=== PATIENT | male | born 1955 | race Caucasian/White ===

== ENCOUNTER 2021-04-23 10:23 | Emergency (ER) | payer BC, MEDICARE, OTHER ==
[~2021-04-23] VITALS: Ht 170.2 cm; Wt 135.0 kg
[2021-04-23 10:23] VITALS: BP 109/79
--- NOTE | 2021-04-23 10:45 | PHYS DOC ---
Past History Past Surgical History: No Surgical History Adult General Chief Complaint Chief Complaint: LACERATION/AVULSION HPI HPI Patient is a 65-year-old male not up-to-date on tetanus who presents for hand laceration. Reports he was performing yard work and had his hand up performing maintenance in his house when he encountered a hornets nest. He quickly tried to remove hand from the area when he cut the dorsal portion of his hyperthenar eminence. Patient reported bleeding initially that stopped with compression, t here was concerned about need for sutures and so patient came to the ER for evaluation Review of Systems Review of Systems Fourteen body systems of review of systems have been reviewed. See HPI for pertinent positives and negative responses, other [place] all other systems are negative, non-pertinent or non-contributory Physical Exam Physical Exam Constitutional: Well developed, well nourished, no acute distress, non-toxic appearance. HENT: Normocephalic, atraumatic, bilateral external ears normal, oropharynx moist, no oral exudates, nose normal. Eyes: PERRLA, EOMI, conjunctiva normal, no discharge. Neck: Normal range of motion, no tenderness, supple, no stridor. Cardiovascular: Heart rate regular, sinus rhythm, no murmurs rubs or gallops Lungs & Thorax: Bilateral breath sounds clear to auscultation Abdomen: Bowel sounds normal, soft, no tenderness, no masses, no pulsatile masses. Nonsurgical abdomen, no peritoneal signs Skin: Warm, dry, no erythema, no rash. 2.5 cm well approximated linear laceration to dorsal portion of hyperthenar eminence involving epidermis and dermis only Back: No tenderness, no CVA tenderness. Extremities: No tenderness, no cyanosis, no clubbing, ROM intact, no edema. Radial pulses 2+ bilaterally, cap refill less than 3 seconds in all distal digits Neurologic: Alert and oriented X 3, medial radial and ulnar nerves of bilateral upper extremities intact, normal motor & sensory function, no focal deficits noted. Psychologic: Affect normal, judgement normal, mood normal. Current Patient Data Vital Signs Vital Signs Date Time Temp Pulse Resp B/P (MAP) Pulse Ox O2 Delivery O2 Flow Rate FiO2 04/23/21 10:23 98.1 63 18 109/79 100 Room Air Vital Signs Date Time Temp Pulse Resp B/P (MAP) Pulse Ox O2 Delivery O2 Flow Rate FiO2 04/23/21 10:23 98.1 63 18 109/79 100 Room Air EKG EKG [] Radiology/Procedures Radiology/Procedures [] Heart Score C/O Chest Pain: No Risk Factors: Risk Factors: DM, Current or recent (<one month) smoker, HTN, HLP, family history of CAD, obesity. Risk Scores: Risk Factors: DM, Current or recent (<one month) smoker, HTN, HLP, family history of CAD, obesity. Course & Med Decision Making Course & Med Decision Making ABCs unremarkable. I disclosed entirety of ER findings and discussed most likely diagnosis of simple laceration. Tetanus updated today. Wound irrigated extensively and evaluated without any concern for foreign bodies or other concerning findings. Wound is well approximated, discussed all available interventions and joint decision among myself, patient and to defer any sutures and reyes as skin had already started to heal over without any intervention whatsoever. Continued supportive care advised. I stressed need for close outpatient follow-up to review today's ER visit. Strict return precautions were also discussed at length with good understanding by patient. Patient voiced understanding and agreement with the plan. Patient knows to come back for repeat evaluation if concerning signs or symptoms present prior to outpatient follow-up. Hemodynamically stable, ambulatory and well-appearing at time of disposition. Dragon Disclaimer Dragon Disclaimer This electronic medical record was generated, in whole or in part, using a voice recognition dictation system. Departure Departure: Impression: Primary Impression: Laceration of right hand without complication, excluding fingers Disposition: HOME / SELF CARE / HOMELESS Condition: STABLE Referrals: JONES TREJO (PCP) Patient Instructions: Laceration Care, Adult Additional Instructions: You were seen for a laceration. Keep the area clean and dry. We discussed various treatment options but joint decision made to defer any invasive intervention such as reyes or sutures. Your tetanus vaccine was updated today, it was disclosed that there is no indication for antibiotic treatment. Do not take prolonged baths, submerge the wound, or use a hot tub until your wound is healed. Return to the ED immediately if you develop any signs of infection like increased pain, redness, fever, or purulent (pus) drainage. CHLOÉ CASAS DO Apr 23, 2021 10:45
[2021-04-23] MEDS ORDERED: NEOMY/BACITR/POLYMYXIN OINT PACKET. TP ONE (11:30)
[2021-04-23] MEDS ORDERED: DIPH,PERTUSS(ACELL),TET VAC/PF 0.5 ML SYRINGE. VAX IM ONE (11:30)
== END 2021-04-23 11:30 | disposition home or self-care (01) ==
LOC: ER 10:23
DX: S61.219A Laceration without foreign body of unspecified finger without damage to nail, initial encounter (principal); Z23 Encounter for immunization; X58.XXXA Exposure to other specified factors, initial encounter; Y93.89 Activity, other specified; Y92.89 Other specified places as the place of occurrence of the external cause; Y99.8 Other external cause status
CPT/HCPCS: 12001; 90471; 90715; 99283-25